=== PATIENT | female | born 1980 | race American Indian/Alaskan Native ===

== ENCOUNTER 2021-03-06 10:21 | Emergency (ER) | payer OTHER ==
[2021-03-06 12:20] LABS: Bilirubin,Urine NEG (Negative); Blood,Urine NEG (Negative); Color,Urine Straw (Yellow); Protein,Urine <15 mg/dL mg/dL (Negative); Urobilinogen,Urine < 2.0 mg/dL (<2.0); WBC,Urine < 1.0 /HPF (0.0-6.0)
--- NOTE | 2021-03-06 12:47 | Emergency Department Report ---
ED Female HPI - General Chief complaint: Abdominal Pain Time Seen by Provider: 03/06/21 12:40 Source: patient Mode of arrival: Ambulatory Limitations: No Limitations - History of Present Illness Initial comments: Chief complaint: Lower abdominal pain HPI: This is a 40-year-old female -0-1-4 who presents with lower abdominal pain for 3 days. She has pressure sensation in the pelvic suprapubic region. She also has frequent urination. She has had a positive home test. She denies vaginal discharge. She denies vaginal bleeding. She denies dysuria. She denies fever. Dull pressure sensation in her pannus 3 days without radiation. Patient's LMP in January. Complaint: pelvic pain -: Gradual, days(s) (3 days) Location: suprapubic Radiation: non-radiating Severity: mild, moderate Quality: dull, other (Pressure) Consistency: constant Improves with: none Worsens with: none Are you Now?: Yes Associated Symptoms: denies other symptoms - Related Data Allergies Allergy/AdvReac Type Severity Reaction Status Date / Time No Known Allergies Allergy Unverified 03/06/21 11:22 ED Review of Systems ROS: Stated complaint: Other details as noted in HPI Comment: All other systems reviewed and negative Constitutional: denies: fever, malaise Respiratory: denies: cough, shortness of breath Gastrointestinal: abdominal pain. denies: nausea, vomiting Genitourinary: frequency. denies: dysuria Musculoskeletal: denies: back pain ED Past Medical Hx - Past Medical History Previous Medical History?: No - Surgical History Past Surgical History?: Yes Additional Surgical History: for twins - Family History Family history: hypertension - Social History Smoking Status: Never Smoker Substance Use Type: None ED Physical Exam - General Limitations: No Limitations General appearance: alert, in no apparent distress - Head Head exam: Present: atraumatic, normocephalic - Eye Eye exam: Present: normal appearance - ENT ENT exam: Present: mucous membranes moist - Neck Neck exam: Present: normal inspection, full ROM - Respiratory Respiratory exam: Present: normal lung sounds bilaterally. Absent: respiratory distress, wheezes, rales, rhonchi - Cardiovascular Cardiovascular Exam: Present: regular rate, normal rhythm, normal heart sounds. Absent: systolic murmur, diastolic murmur, rubs, gallop - GI/Abdominal GI/Abdominal exam: Present: soft, normal bowel sounds, other (Central vertical infraumbilical surgical scar). Absent: distended, tenderness, guarding, rebound - Extremities Exam Extremities exam: Present: normal inspection - Neurological Exam Neurological exam: Present: alert, oriented X3 - Psychiatric Psychiatric exam: Present: normal affect, normal mood - Skin Skin exam: Present: warm, dry, intact, normal color. Absent: rash ED Course Vital Signs 03/06/21 03/06/21 03/06/21 12:03 15:28 15:49 Pulse Rate 83 76 103 H Respiratory 16 15 Rate Blood Pressure 125/83 Blood Pressure 130/85 143/57 [Left] O2 Sat by Pulse 100 100 81 L Oximetry 03/06/21 03/06/21 03/06/21 15:50 15:55 16:00 Pulse Rate 102 H 108 H 101 H Respiratory Rate Blood Pressure Blood Pressure [Left] O2 Sat by Pulse 99 97 97 Oximetry 03/06/21 03/06/21 03/06/21 16:04 16:05 16:10 Pulse Rate 96 H 104 H 105 H Respiratory Rate Blood Pressure 125/76 Blood Pressure [Left] O2 Sat by Pulse 96 98 Oximetry 03/06/21 03/06/21 03/06/21 16:15 16:19 16:20 Pulse Rate 100 H 101 H 103 H Respiratory Rate Blood Pressure 121/79 Blood Pressure [Left] O2 Sat by Pulse 97 97 Oximetry 03/06/21 03/06/21 03/06/21 16:25 16:30 16:34 Pulse Rate 111 H 103 H 100 H Respiratory Rate Blood Pressure 118/75 Blood Pressure [Left] O2 Sat by Pulse 98 97 Oximetry 03/06/21 03/06/21 03/06/21 16:35 16:40 16:45 Pulse Rate 115 H 108 H 91 H Respiratory Rate Blood Pressure Blood Pressure [Left] O2 Sat by Pulse 96 99 99 Oximetry 03/06/21 03/06/21 03/06/21 22:54 22:55 22:59 Pulse Rate 86 77 79 Respiratory Rate Blood Pressure 119/62 Blood Pressure [Left] O2 Sat by Pulse 97 96 Oximetry 03/06/21 03/06/21 03/06/21 23:04 23:09 23:14 Pulse Rate 88 70 84 Respiratory Rate Blood Pressure Blood Pressure [Left] O2 Sat by Pulse 97 98 97 Oximetry 03/06/21 03/06/21 03/06/21 23:19 23:24 23:29 Pulse Rate 82 72 97 H Respiratory Rate Blood Pressure Blood Pressure [Left] O2 Sat by Pulse 98 98 97 Oximetry 03/06/21 03/06/21 03/06/21 23:34 23:39 23:44 Pulse Rate 76 79 74 Respiratory Rate Blood Pressure Blood Pressure [Left] O2 Sat by Pulse 98 98 99 Oximetry 03/06/21 03/06/21 03/06/21 23:49 23:54 23:57 Pulse Rate 76 77 75 Respiratory Rate Blood Pressure 118/69 Blood Pressure [Left] O2 Sat by Pulse 98 98 Oximetry 03/06/21 03/07/21 03/07/21 23:59 00:04 00:09 Pulse Rate 88 73 88 Respiratory Rate Blood Pressure Blood Pressure [Left] O2 Sat by Pulse 97 98 100 Oximetry 03/07/21 03/07/21 03/07/21 00:13 00:14 00:19 Pulse Rate 81 76 81 Respiratory Rate Blood Pressure 127/72 Blood Pressure [Left] O2 Sat by Pulse 99 98 Oximetry 03/07/21 03/07/21 03/07/21 00:24 00:29 00:34 Pulse Rate 87 85 79 Respiratory Rate Blood Pressure 122/64 Blood Pressure [Left] O2 Sat by Pulse 99 98 98 Oximetry 03/07/21 03/07/21 03/07/21 00:39 00:42 00:43 Pulse Rate 90 79 Respiratory Rate Blood Pressure 131/67 Blood Pressure [Left] O2 Sat by Pulse 99 84 Oximetry 03/07/21 03/07/21 03/07/21 00:48 00:50 00:55 Pulse Rate 104 H 81 Respiratory Rate Blood Pressure Blood Pressure [Left] O2 Sat by Pulse 79 L 80 L 100 Oximetry 03/07/21 03/07/21 03/07/21 00:58 01:00 01:05 Pulse Rate 80 68 71 Respiratory Rate Blood Pressure 114/71 Blood Pressure [Left] O2 Sat by Pulse 100 100 Oximetry 03/07/21 03/07/21 03/07/21 01:10 01:13 01:15 Pulse Rate 70 70 76 Respiratory Rate Blood Pressure 108/59 Blood Pressure [Left] O2 Sat by Pulse 99 100 Oximetry 0703/07/21 03/07/21 01:20 01:25 01:27 Pulse Rate 88 89 86 Respiratory Rate Blood Pressure 116/68 Blood Pressure [Left] O2 Sat by Pulse 99 100 Oximetry 03/07/21 03/07/21 03/07/21 01:30 01:35 01:40 Pulse Rate 85 87 73 Respiratory Rate Blood Pressure Blood Pressure [Left] O2 Sat by Pulse 99 100 100 Oximetry 03/07/21 03/07/21 03/07/21 01:44 01:45 01:50 Pulse Rate 71 89 81 Respiratory Rate Blood Pressure 121/68 Blood Pressure [Left] O2 Sat by Pulse 100 100 Oximetry 03/07/21 03/07/21 01:55 01:57 Pulse Rate 75 80 Respiratory Rate Blood Pressure Blood Pressure [Left] O2 Sat by Pulse 100 92 Oximetry ED Medical Decision Making - Lab Data Result diagrams: 03/06/21 12:55 03/06/21 12:55 - Radiology Data Radiology results: report reviewed Radiology impression ultrasound: IUP of uncertain viability. No discrete yolk sac or pole. Gestational age 5 weeks 5 days - Medical Decision Making Threatened : Gestational sac visualized on ultrasound no confirmed IUP. Patient given return precautions. Discharged home. Critical care attestation.: If time is entered above; I have spent that time in minutes in the direct care of this critically ill patient, excluding procedure time. ED Disposition Clinical Impression: Threatened miscarriage Disposition: DC-01 TO HOME OR SELFCARE Is pt being admited?: No Does the pt Need Aspirin: No Condition: Stable Instructions: Threatened Miscarriage, Abdominal Pain (ED) Referrals: RAISSA CANO MD [Primary Care Provider] - 3-5 Days
[2021-03-06 13:14] LABS: Basophils % (Auto) 0.8 % (0.0-1.8); Eosinophils % (Auto) 0.9 % (0.0-4.3); Hematocrit 36.6 % (30.3-42.9); Hemoglobin 12.3 gm/dl (10.1-14.3); Lymphocytes # (Auto) 2.1 K/mm3 (1.2-5.4); Lymphocytes % (Auto) 40.5 % (13.4-35.0); Mean Corpuscular HGB Conc 34 % (30-34); Mean Corpuscular Volume 83 fl (79-97); Monocytes # (Auto) 0.4 K/mm3 (0.0-0.8); Monocytes % (Auto) 6.8 % (0.0-7.3); Platelet Count 276 K/mm3 (140-440); Red Blood Count 4.43 M/mm3 (3.65-5.03); Red Cell Distribution Width 14.8 % (13.2-15.2)
[2021-03-06 13:34] LABS: Alanine Aminotransferase 14 units/L (7-56); Albumin 4.6 g/dL (3.9-5); Blood Urea Nitrogen 6 mg/dL (7-17); Calcium 9.7 mg/dL (8.4-10.2); Hemolysis Index 87
[2021-03-06 13:41] LABS: BUN/Creatinine Ratio 12
--- NOTE | 2021-03-06 17:29 | Ultrasound Report ---
ULTRASOUND OBSTETRIC REASON FOR EXAM: abdominal pain, 4 weeks TECHNIQUE: Transabdominal and transvaginal ultrasound was performed to evaluate a first trimester pre gnancy. COMPARISON: None available. FINDINGS: Uterus measures 13.9 cm. There is a ovoid intrauterine cystic structure with double decidua l sign, most consistent with intrauterine gestational sac. No yolk sac or pole is identified. T his demonstrates a mean sac diameter of 9.5 mm, corresponding to a gestational age of 5 weeks and 5 d ays. No perigestational hemorrhage. 2.9 cm right corpus luteum cyst. Adnexa are otherwise unremarkable. No suspicious cystic or solid mas s. Minimal free fluid is likely physeal at. IMPRESSION: IUP of uncertain viability. Intrauterine gestational sac without discrete yolk sac or pole iden tified at this time. Mean sac diameter corresponds to a gestational age of 5 weeks and 5 days. In a h emodynamically stable patient, recommend follow-up with pelvic ultrasound in 7-10 days. Signer Name: Rajeev Gill MD Signed: 03/06/2021 5:24 PM Workstation Name: [id number]
[2021-03-07 01:45] VITALS: BP 121/68
== END 2021-03-06 15:28 | disposition home or self-care (01) ==
LOC: ED 10:21 → TRG 10:21 → APU 10:24 → TRG 10:24 → EDSTATUS 10:54 → ED 15:28
DX: O20.0 Threatened abortion (principal); Z98.890 Other specified postprocedural states; Z3A.01 Less than 8 weeks gestation of pregnancy
CPT/HCPCS: 36415; 76801; 76817; 80053; 81001; 84702; 85025

== ENCOUNTER 2021-12-11 10:31 | Outpatient (CLI) | payer BC ==
--- NOTE | 2021-12-12 11:23 | Mammography Report ---
DIGITAL SCREENING MAMMOGRAM WITH CAD, 12/11/2021 CLINICAL INFORMATION / INDICATION: Routine screening mammography. SCREENING MAMMOGRAM TECHNIQUE: Digital bilateral 2D mammography was obtained in the craniocaudal and mediolateral obliqu e projections. This examination was interpreted with the benefit of Computer-Aided Detection analysis . COMPARISON: None. FINDINGS: Breast Density: The breasts are heterogeneously dense, which may obscure small masses. No dominant mass, suspicious calcifications, or architectural distortion in either breast. IMPRESSION: No mammographic evidence of malignancy. Follow up recommendation: Routine yearly BI-RADS Category 1: NEGATIVE A "normal" or negative report should not discourage follow up or biopsy of a clinically significant f inding. A written summary of these findings will be mailed to the patient. The patient will be entered into a mammography reporting system which will generate a reminder letter for the patient's next appointmen t at the appropriate interval. The [employer] recommends yearly mammograms starting at age 40 and continuing as l real as a woman is in good health. Breast MRI is recommended for women with an approximate 20-25% or greater lifetime risk of breast cancer, including women with a strong family history of breast or ova frida cancer or who have been treated for Hodgkin's disease. Signer Name: Francisco Javier Christensen MD Signed: 12/12/2021 11:19 AM Workstation Name: [id number]
== END 2021-12-11 10:32 | disposition home or self-care (01) ==
LOC: MAMMO 10:31
PROVIDERS: ATTEND Internal Medicine
DX: Z12.31 Encounter for screening mammogram for malignant neoplasm of breast (principal)
CPT/HCPCS: 77067